=== PATIENT | male | born 1950 | race Caucasian/White ===

== ENCOUNTER 2019-08-18 08:00 | Outpatient (CLI) | payer MEDICARE, OTHER | END 2019-08-18 23:59 | disposition home or self-care (01) | LOC: LAB.R 08:00 | PROVIDERS: ATTEND Family Medicine | DX: R35.0 Frequency of micturition (principal) | CPT/HCPCS: 87086; 87181 ==

== ENCOUNTER 2020-07-19 13:34 | Outpatient (CLI) | payer MEDICARE, OTHER ==
[2020-07-19 14:22] VITALS: BP 124/71
--- NOTE | 2020-07-19 14:22 | SLEEP CARE CONSULTATION ---
Information from patient questionnaire entered by Merari Castellano. I have reviewed and concur with the information entered by Merari Castellano. This document represents the service I personally performed and the decisions made by me, Anna Betancourt ARNP. History of Present Illness Service Date and Time: 07/19/2020 1334 Reason for Visit: New patient, Previously diagnosed sleep apnea, Re-establish care Chief Complaint: reports: Snoring, Observed pauses in breathing Date of Onset: A long time Usual bedtime: 10:30 - 11 Time it takes to fall asleep: 5 mins Snores at night: Yes Observed to quit breathing while asleep: Yes Sleeps alone due to snoring: No Number of times waking at night: 1 or 2 time Reasons for waking at night: reports: Bathroom. denies: Choking, Snoring, Gasping for air Toss, Turn, or Twitch while sleeping: Yes Recalls having dreams: Yes Usually gets out of bed at: 7:00 Feels refreshed in the morning: Yes Morning headache: No Sleepy or fatigued during the day: No Ever fallen asleep while driving: No Takes day naps: No Prior sleep studies: Yes Year and Where: 2010 [facility] Type of Sleep Study: Polysomnography Additional HPI information: MIGUELITO REN was diagnosed to have mild, AHI 6.2, obstructive sleep apnea- hypopnea syndrome in 2010. He did not start any therapy at that time. He comes in today because his has been telling him that he is pausing breathing throughout the night. 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 Patient is and lives in [place]. Have you smoked in the past 12 months: No Alcohol use: Yes Alcohol amount and frequency: glass of wine with dinner Caffeine use: No Family History Family history of sleep disordered breathing: Yes (My sister) Family Hx Sleep Apnea: Sibling: Sleep apnea - Treated Allergies and Home Medications Drug allergies reviewed: Yes (NKDA) Home medication list reviewed: Yes Allergy and home medication list: Tylenol Lisinopril Flomax Amlodipine 2.5 mg Review of Systems Weight gain over past 5 years: + or - 5 lbs Cardiovascular: reports: high blood pressure Gastrointestinal: denies: heartburn Neurological: denies: headaches Ear/Nose/Throat: reports: tonsillectomy, wisdom teeth removed Immunologic: denies: allergies to food or environment Physical Exam Blood Pressure: 124/71 Cuff size: wrist Heart Rate: 70 O2 Saturation: 96 Height: 5 ft 11 in Weight: 206 lb Body Mass Index: 28.7 BMI Classification: Overweight Heart: regular rate and rhythm Lungs: clear bilaterally Impression and Plan 1. Suspected Obstructive Sleep Apnea-Hypopnea Syndrome, as previously diagnosed in 2010 and as suggested by a continued history of loud and irregular snoring and observed cessation of breath while asleep. Narrow oropharynx and obesity are common predisposing factors for obstructive sleep apnea-hypopnea syndrome. I recommend proceeding to polysomnography to confirm the diagnosis and to assess severity. If the patient has significant sleep disordered breathing, a manual CPAP titration study will also be performed to find the optimal treatment pressure. I informed the patient of what the sleep studies involve and after some discussion, obtained agreement to proceed. The pathophysiology of obstructive sleep apnea-hypopnea syndrome was discussed with the patient and health risks of cardiovascular and cerebrovascular disease if not treated. Risks of drowsy driving discussed in detail and patient advised to avoid long distance driving and to loin puller at the first sign of drowsiness. Patient agreed to plan. * Schedule polysomnography +- manual CPAP titration study and return in 1-2 weeks after the study to discuss result and initiate therapy. * Avoid long distance driving or driving when feeling sleepy. * Avoid alcohol, sedative and muscle relaxant around bedtime. * Attempt to lose weight. * Review instructions provided by trained office staff on how to prepare for the sleep study. * Return for follow-up after sleep study completed. Counseling Topics: Weight loss health impact Visit Type: In Office Time Spent with Patient (minutes): 23 Provider Statement: I spent 100% of the Face to Face Visit with the patient with greater than 50% spent counseling the patient and coordination of care.
== END 2020-07-19 13:35 | disposition home or self-care (01) ==
LOC: SC 13:34
PROVIDERS: ATTEND Nurse Practitioner Family
DX: G47.33 Obstructive sleep apnea (adult) (pediatric) (principal); E66.3 Overweight; Z68.28 Body mass index [BMI] 28.0-28.9, adult
CPT/HCPCS: 99203; G0463; 99212

== ENCOUNTER 2020-08-22 07:00 | Outpatient (CLI) | payer MEDICARE, OTHER ==
--- NOTE | 2020-08-22 16:17 | XRAY Report ---
PROCEDURE: Cervical Spine 2 View INDICATIONS: CERVICAL RADICULOPATHY TECHNIQUE: view(s) of the cervical spine were acquired. COMPARISON: None. FINDINGS: Bones: No fractures or dislocations to the C7-T1 level. The lateral masses of C1 appear intact on t he odontoid view. No suspicious bony lesions. There is trace anterolisthesis of C3 on C4, trace ret rolisthesis of C4 on C5, C5 on C6. Severe disc space narrowing is present from C4-5 through C7-T1. Mu ltilevel prominent uncovertebral arthropathy are present. The latter osteophytes are present. Soft tissues: No prevertebral soft tissue swelling. IMPRESSION: Multilevel degenerative changes most severe from C4-5 through C7-T1. Reviewed by: Anh Ayala MD on 08/22/2020 4:16 PM PDT Approved by: Anh Ayala MD on 08/22/2020 4:16 PM PDT Station ID: [id number]
== END 2020-08-22 23:59 | disposition home or self-care (01) ==
LOC: DI.WCP 07:00
PROVIDERS: ATTEND Physician Assistant Medical
DX: M47.22 Other spondylosis with radiculopathy, cervical region (principal); M48.02 Spinal stenosis, cervical region

== ENCOUNTER 2020-10-24 20:47 | Outpatient (CLI) | payer MEDICARE, OTHER | END 2020-10-24 20:48 | disposition home or self-care (01) | LOC: SC 20:47 | PROVIDERS: ATTEND Nurse Practitioner Family | DX: G47.33 Obstructive sleep apnea (adult) (pediatric) (principal); G47.61 Periodic limb movement disorder; E66.3 Overweight; Z68.28 Body mass index [BMI] 28.0-28.9, adult | CPT/HCPCS: 95810 ==

== ENCOUNTER 2020-11-01 16:52 | Outpatient (CLI) | payer MEDICARE, OTHER ==
--- NOTE | 2020-11-01 17:26 | SLEEP CARE CONSULTATION ---
Information from patient questionnaire entered by Merari Castellano. I have reviewed and concur with the information entered by Merari Castellano. This document represents the service I personally performed and the decisions made by , Anna Betancourt ARNP. History of Present Illness Service Date and Time: 11/01/2020 165 Initial [place] Sleepiness Scale score: 2 Current [place] Sleepiness Scale score: 3 Additional HPI information: MIGUELITO REN returns for follow up and results of the recently performed polysomnography. I explained the pathophysiology behind obstructive sleep apnea. We then spent quite a bit of time discussing different treatment options. For mild obstructive sleep apnea, surgery and oral appliance are alternatives to nasal CPAP therapy but in moderate or severe cases, nasal CPAP is the most effective and reliable treatment. Because apnea is primarily in supine position, then positional management therapy could be effective. Methods discussed such as positioning with pillows, using a T-shirt with tennis balls in the back, and shown commercial products that have a pillow format on back to prevent supine sleep. I reviewed the impact of weight changes on sleep apnea and strongly recommended losing weight. After some discussion, the patient opted to go with the nasal CPAP therapy. Nasal autoCPAP set at 4-15 cmH20 will be ordered with rationale explained. A manual titration study will be ordered if unable to find optimal pressure with office adjustments. I explained how CPAP machine works with sample devices [employer] Dream[employer] and [employer] [id number] and what to expect when using the machine. Using CPAP every night in order to get used to it was emphasized. Patient advised to put CPAP mask on before getting into bed so as not to fall asleep without CPAP. To assist acclimation to CPAP use, it could also be used for a short time during day while reading or watching TV. The patient was instructed to call the CPAP supplier to discuss any mechanical problem that may occur. If the mask given is uncomfortable or is difficult to keep on through the night even with adjustment, contact the CPAP supplier as many will replace with another mask style if notified before 30 days. If snoring or perceives is not getting enough air or too much air from the machine, notify this office. AAS patient education PAP tips reviewed and given to patient. Patient was cautioned about risks of drowsy driving until sleepiness symptoms resolve. Sleep Study - Results Type of Sleep Study: Polysomnography Prior sleep studies: Yes Year and Where: 2010 [facility] Polysomnography/Home Sleep Study results: IMPRESSION: The quality of the study is good. The patient had slightly reduced sleep efficiency due to frequent awakenings throughout the night.. The sleep architecture was abnormal for sleep fragmentation and reduced amount of time spent in REM and slow wave sleep (N3). Respiratory monitoring showed moderate obstructive sleep apnea-hypopnea (AHI = 23.0) associated with frequent arousals, oxyhemoglobin desaturation and moderate hypoxia (lydia oxygen saturation of 74%). Baseline oxygen saturation was normal. The respiratory events occurred almost exclusively during supine sleep (supine AHI = 32.9; non-supine = 1.53). Snore was light to moderate in intensity. There was severe periodic leg movement of sleep contributing to the sleep fragmentation. Cardiac rhythm was normal sinus rhythm without significant arrhythmia. No abnormal behavior (parasomnia) observed during the night. Allergies and Home Medications Home medication list reviewed: Yes (no changes) Review of Systems Review of systems same as previous: Yes (no changes) Physical Exam Heart Rate: 64 O2 Saturation: 95 Height: 5 ft 11 in Weight: 201 lb Body Mass Index: 28.0 BMI Classification: Overweight Impression and Plan 1. Obstructive Sleep Apnea-Hypopnea Syndrome, moderate, with lowest oxygen saturation of 74%. Obviously this is the cause of the patients symptoms of unrefreshed sleep, and excessive daytime sleepiness. Positive pressure therapy could benefit hypertension. As mentioned above, the patient will be started on nasal autoCPAP therapy with pressure set at 4-15 cmH2O. A manual titration study will be completed if unable to find optimal treatment pressure with office adjustments. Compliance guidelines also reviewed. A copy of compliance guidelines will be given for reference at check out. Because the apnea is more severe supine, I instructed to avoid sleeping supine using pillow positioning until able to start CPAP use. 2. Periodic limb movement, severe, that did fragment patients sleep. Periodic limb movement of sleep (PLMS) is characterized by episodes of repetitive limb movements that occur during sleep and usually involve the lower limbs. Patient was advised that no treatment is needed at this time. If symptoms increase, then further evaluation is indicated. * Nasal auto CPAP therapy, pressure at 4-15 cm H2O. * Attempt to lose weight. * Avoid alcohol consumption near bedtime. * Avoid supine sleep until using CPAP. * The patient is again cautioned about driving until sleepiness completely resolves. * Return one month after CPAP obtained. I will assess response to therapy and compliance at that time. Counseling Topics: Weight loss health impact Visit Type: In Office Time Spent with Patient (minutes): 25 Provider Statement: I spent 100% of the Face to Face Visit with the patient with greater than 50% spent counseling the patient and coordination of care.
== END 2020-11-01 16:53 | disposition home or self-care (01) ==
LOC: SC 16:52
PROVIDERS: ATTEND Nurse Practitioner Family
DX: G47.33 Obstructive sleep apnea (adult) (pediatric) (principal); E66.3 Overweight; Z68.28 Body mass index [BMI] 28.0-28.9, adult
CPT/HCPCS: 99213; G0463; 99212

== ENCOUNTER 2020-12-27 09:16 | Outpatient (CLI) | payer MEDICARE, OTHER ==
--- NOTE | 2020-12-27 09:44 | SLEEP CARE CONSULTATION ---
Information from patient questionnaire entered by Merari Castellano. I have reviewed and concur with the information entered by Merari Castellano. This document represents the service I personally performed and the decisions made by , Anna Betancourt ARNP. History of Present Illness Service Date and Time: 12/27/2020 0916 Previous diagnosis: Moderate, Obstructive Sleep Apnea-Hypopnea Syndrome AHI: 23.0 Reason for follow up: first compliance (11/15 set-up) Equipment type: CPAP Equipment obtained from: Other ([facility]; got initial supplies) Mask style: Full face Backup mask available: No (will keep old mask when replaced) Last cushion change: 5-6 weeks Prior sleep studies: Yes Year and Where: 2010 [facility] Type of Sleep Study: Polysomnography HPI additional information: MIGUELITO REN was diagnosed to have mild, AHI 6.2, obstructive sleep apnea- hypopnea syndrome and returned today for CPAP therapy first compliance follow- up. CPAP Compliance Data - Data Reviewed with Patient Average duration of nightly device use: 7 h 18 min Compliance rate %: 93 Current pressure setting (cmH2O): 4-15 (median 12.7, 95th% 14.6, max 14.8) Average residual AHI: 9.9 Central apnea: 0.8 Obstructive apnea: 3.5 Subjective Patient concerns: reports: dry mouth, nose, throat (dry mouth, not bad), other (Incidents high). denies: aerophagia, mask discomfort, air blowing in eyes, mask leak noise, condensation in mask/hose, nasal congestion, epistaxis Observed to snore while using device: No Current pressure setting perceived as: too low On therapy, patient: reports: sleeping better (and longer without waking up). denies: drowsiness while driving Initial [place] Sleepiness Scale score: 6 (in 2014) Current [place] Sleepiness Scale score: 7 Allergies and Home Medications Home medication list reviewed: Yes (no changes) Review of Systems Review of systems same as previous: Yes (no changes) Physical Exam Heart Rate: 68 O2 Saturation: 97 Height: 5 ft 11 in Weight: 203 lb Body Mass Index: 28.3 BMI Classification: Overweight Impression and Plan 1. Obstructive Sleep Apnea-Hypopnea Syndrome, mild, with good treatment compliance and fair apnea control with elevated residual AHI. On CPAP therapy, the patient has better sleep quality and is more rested overall. Patient has been watching his device and notes that he has been having elevated events. He has also felt like he needs more air at times (feeling heaviness or hard to breathe with mask on). The patients pressure will be changed to autoCPAP 13-20 cmH20 for elevation of residual AHI and air hunger. Patient advised to contact me if pressure change is uncomfortable so that it can be adjusted. Goals for apnea control discussed. He has been getting some mild mouth dryness. Oral dryness can be reduced by adjusting humidity setting higher or heated hose lower or by adjusting both settings. Verbal instructions given on how to change humidity and heated hose settings with rationale explaining why to change. Patient's apnea severity and rationale for treatment to reduce apnea, improve sleep quality and reduce cardiovascular and cerebrovascular events was reviewed. I also reviewed the benefit of consistent device use of CPAP for hypertension. Patient encouraged to try to lose weight to improve his overall health. * Change auto CPAP pressure to 13-20 cmH2O * Notify me if snoring with mask or feeling that the pressure is too much or too little * Attempt to lose weight * Call this office if any problems using CPAP * Return for follow up in 1-2 months, or sooner if concerns arise Counseling Topics: Spare mask, Weight loss health impact Visit Type: In Office Time Spent with Patient (minutes): 17 Provider Statement: I spent 100% of the Face to Face Visit with the patient with greater than 50% spent counseling the patient and coordination of care.
== END 2020-12-27 09:17 | disposition home or self-care (01) ==
LOC: SC 09:16
PROVIDERS: ATTEND Nurse Practitioner Family
DX: G47.33 Obstructive sleep apnea (adult) (pediatric) (principal)
CPT/HCPCS: 99212; G0463

== ENCOUNTER 2021-02-12 14:39 | Outpatient (CLI) | payer MEDICARE, OTHER ==
--- NOTE | 2021-02-12 15:07 | SLEEP CARE CONSULTATION ---
Information from patient questionnaire entered by Cleo Cortes. I have reviewed and concur with the information entered by Cleo Cortes. This document represents the service I personally performed and the decisions made by , Anna Betancourt ARNP. History of Present Illness Service Date and Time: 02/12/2021 1439 Previous diagnosis: Moderate, Obstructive Sleep Apnea-Hypopnea Syndrome AHI: 23.0 (in 2020)(6.2 in 2010) Reason for follow up: other (6 week with pressure change) Equipment type: CPAP Equipment obtained from: Other ([facility]; has not been contacted or gotten more supplies) Mask style: Full face Backup mask available: No (will keep old mask when replaced) Last cushion change: 2 weeks ago Prior sleep studies: Yes Year and Where: 2020 and 2010 - [facility] Type of Sleep Study: Polysomnography HPI additional information: MIGUELITO REN was diagnosed to have mild, AHI 6.2, obstructive sleep apnea- hypopnea syndrome and returned today for CPAP therapy 6 week pressure change follow-up. CPAP Compliance Data - Data Reviewed with Patient Average duration of nightly device use: 6 hr 16 min Compliance rate %: 100 Current pressure setting (cmH2O): 8-16 Humidity settin Average residual AHI: 7.4 Subjective Patient concerns: reports: other (uncomfortable, air seems stale). denies: aerophagia, mask discomfort, air blowing in eyes, mask leak noise, condensation in mask/hose, nasal congestion, dry mouth, nose, throat, epistaxis Observed to snore while using device: No Current pressure setting perceived as: comfortable On therapy, patient: reports: other (he does not feel different with CPAP as without). denies: sleeping better, more rested overall, drowsiness while driving Initial [place] Sleepiness Scale score: 6 (in 2010) Current [place] Sleepiness Scale score: 4 Allergies and Home Medications Home medication list reviewed: Yes (no changes) Review of Systems Review of systems same as previous: Yes (no changes) Physical Exam Heart Rate: 67 O2 Saturation: 96 Height: 5 ft 11 in Weight: 204 lb Body Mass Index: 28.4 BMI Classification: Overweight Impression and Plan 1. Obstructive Sleep Apnea-Hypopnea Syndrome, mild, with excellent treatment co mpliance and fair apnea control with mild elevation of residual AHI. Patient has not felt like he is getting better sleep or feeling more rested with using the CPAP. He states his is happier because his snoring has reduced. He does feel like it is making some positive changes but overall is not real comfortable with CPAP use at this time. The patients pressure will be changed to autoCPAP 1 0-18 cmH20 for elevation of residual AHI. Patient advised to contact me if pressure change is uncomfortable so that it can be adjusted. Goals for apnea control discussed. Patient has not been able to get more supplies yet. I will have the straightener hand give him the number for his [employer] company so that he may contact them to order more supplies. Patient's apnea severity and rationale for treatment to reduce apnea, improve sleep quality and reduce cardiovascular and cerebrovascular events was reviewed. I also reviewed the benefit of consistent device use of CPAP for hypertension. Patient was encouraged to lose weight for their overall health and to reduce apneas. * Change auto CPAP pressure to 10-18 cmH2O * Notify me if snoring with mask or feeling that the pressure is too much or too little * Attempt to lose weight * Call this office if any problems using CPAP * Return for follow up in 3 months, or sooner if concerns arise Counseling Topics: Spare mask, Weight loss health impact Visit Type: In Office Time Spent with Patient (minutes): 21 Provider Statement: I spent 100% of the Face to Face Visit with the patient with greater than 50% spent counseling the patient and coordination of care.
== END 2021-02-12 14:40 | disposition home or self-care (01) ==
LOC: SC 14:39
PROVIDERS: ATTEND Nurse Practitioner Family
DX: G47.33 Obstructive sleep apnea (adult) (pediatric) (principal); E66.3 Overweight; Z68.28 Body mass index [BMI] 28.0-28.9, adult
CPT/HCPCS: 99213; G0463; 99212

== ENCOUNTER 2021-05-14 14:33 | Outpatient (CLI) | payer MEDICARE, OTHER ==
[2021-05-14 15:01] VITALS: BP 124/82
--- NOTE | 2021-05-14 15:01 | SLEEP CARE CONSULTATION ---
Information from patient questionnaire entered by Shaista Boo MA. I have reviewed and concur with the information entered by Shaista Boo MA. This document represents the service I personally performed and the decisions made by , Anna Betancourt ARNP. History of Present Illness Service Date and Time: 05/14/2021 1433 Previous diagnosis: Moderate, Obstructive Sleep Apnea-Hypopnea Syndrome AHI: 23.0 Reason for follow up: three month (PRESSURE CHANGE) Equipment type: CPAP Equipment obtained from: Other ([facility]; getting supplies) Mask style: Full face Backup mask available: Yes (old mask) Last cushion change: 2 months [facility]: Yes [facility] Type of Sleep Study: Polysomnography HPI additional information: MIGUELITO REN was diagnosed to have moderate, AHI 23.0, obstructive sleep apnea-hypopnea syndrome and returned today for CPAP therapy 3 months with pressure change follow-up. Sleep Study - Results Type of Sleep Study: Polysomnography Prior sleep studies: Yes [facility] and [facility] CP[facility] Compliance Data - Data Reviewed with Patient Average duration of nightly device use: 6 hours 47 minutes Compliance rate %: 93 Current pressure setting (cmH2O): 10-18 Average residual AHI: 7.0 Central apnea: 0.7 Obstructive apnea: 2.4 Subjective Patient concerns: reports: dry mouth, nose, throat (he adjusted his heated hose to 85, he may not have adjusted the humidity from last time). denies: aerophagia, mask discomfort, air blowing in eyes, mask leak noise, condensation in mask/hose, nasal congestion, epistaxis, other Observed to snore while using device: No Current pressure setting perceived as: comfortable On therapy, patient: reports: sleeping better, more rested overall, other (He is more comfortable with CPAP mask, sleeping longer ). denies: drowsiness while driving Initial [place] Sleepiness Scale score: 6 (in 2013) Current [place] Sleepiness Scale score: 4 Allergies and Home Medications Home medication list reviewed: Yes (no changes) Review of Systems Review of systems same as previous: Yes (no changes) Physical Exam Vital signs obtained and entered by: BAN MELGOZA Blood Pressure: 124/82 (left) Cuff size: wrist Heart Rate: 69 O2 Saturation: 98 (with mask) Height: 5 ft 11 in Weight: 201 lb (info per PT without clothes) Body Mass Index: 28.0 BMI Classification: Overweight Impression and Plan 1. Obstructive Sleep Apnea-Hypopnea Syndrome, moderate, with good treatment compliance and fair apnea control with mild elevated residual AHI. On CPAP thera py, the patient has better sleep quality and is more rested overall. He states he is getting used to the CPAP and it is not bothering him. The patients pressure will be changed to autoCPAP 13-17 cmH20 for elevation of residual AHI. Patient advised to contact me if pressure change is uncomfortable so that it can be adjusted. Goals for apnea control discussed. He voiced understanding. Patient has had some daily mild oral dryness. We discussed this at his last visit and it sounds like he may have just adjusted his tubing temperature instead of his humidity. I reviewed this again and he will try to increase his humidity to reduce the oral dryness. Patient's apnea severity and rationale for treatment to reduce apnea, improve sleep quality and reduce cardiovascular and cerebrovascular events was reviewed. I also reviewed the benefit of consistent device use of CPAP for hypertension. Patient was encouraged to lose weight for their overall health and to reduce apneas. * Change auto CPAP pressure to 13-17 cmH2O * Notify me if snoring with mask or feeling that the pressure is too much or too little * Attempt to lose weight * Call this office if any problems using CPAP * Return for follow up in 6 months, or sooner if concerns arise Counseling Topics: Spare mask, Weight loss health impact Visit Type: In Office Time Spent with Patient (minutes): 22 Provider Statement: I spent 100% of the Face to Face Visit with the patient with greater than 50% spent counseling the patient and coordination of care.
== END 2021-05-14 14:34 | disposition home or self-care (01) ==
LOC: SC 14:33
PROVIDERS: ATTEND Nurse Practitioner Family
DX: G47.33 Obstructive sleep apnea (adult) (pediatric) (principal); E66.3 Overweight; Z68.28 Body mass index [BMI] 28.0-28.9, adult
CPT/HCPCS: 99213; G0463; 99212

== ENCOUNTER 2021-11-14 06:19 | Day surgery (SDC) | payer MEDICARE, OTHER ==
[2021-11-14] MEDS ORDERED: LACTATED RINGERS 1,000 ML IV ONE ×2 (06:27→08:19)
--- NOTE | 2021-11-14 07:05 | ANESTHESIA ---
Pre-Anesthesia VS, & Labs - Diagnosis positive colguard - Procedure colonoscopy Vital Signs: Temp Pulse Resp BP Pulse Ox 36.1 C L 63 14 130/85 H 96 11/14/21 06:30 11/14/21 06:30 11/14/21 06:30 11/14/21 06:30 11/14/21 06:30 Height: 5 ft 11 in Weight (kg): 89.8 kg Body Mass Index: 27.6 BMI Classification: Overweight - NPO >8 hours Home Medications and Allergies Home Medications: Ambulatory Orders Amlodipine Besylate [Norvasc] 1 tab PO DAILY 11/14/21 Lisinopril/Hydrochlorothiazide [Zestoretic 20-25 mg Tablet] 1 tab PO DAILY 11/14/21 Amlodipine Besylate [Norvasc] 1 tab PO DAILY 11/14/21 Lisinopril/Hydrochlorothiazide [Zestoretic 20-25 mg Tablet] 1 tab PO DAILY 11/14/21 Allergies/Adverse Reactions: Allergies Allergy/AdvReac Type Severity Reaction Status Date / Time No Known Drug Allergies Allergy Verified 11/14/21 06:48 Anes History & Medical History - Anesthetic History Anesthesia Complications: reports: No previous complications Family history of Anesthesia Complications: Denies Family history of Malignant Hyperthermia: Denies - Medical History Cardiovascular: reports: Hypertension, High cholesterol Pulmonary: reports: Sleep apnea, CPAP use Gastrointestinal: reports: None Urinary: reports: Benign prostate hypertrophy Musculoskeletal: reports: Osteoarthritis Endocrine/Autoimmune: reports: None Skin: reports: None - Surgical History Eyes Ears Nose Throat (EENT): reports: Tonsil/Adenoidectomy Orthopedic: reports: Hip replacement, Knee replacement Exam General: Alert, Oriented x3, Cooperative Dental: WNL Mouth Openin Fingerbreadth Neck Mobility: Normal Mallampati classification: II Thyromental Distance: 4-6 cm Respiratory: Lungs clear, Normal breath sounds, No respiratory distress Cardiovascular: Regular rate Neurological: Normal speech Mental/Cognitive Status: Alert/Oriented X3, Normal for patient Cognitive Status: Within normal limits Plan Anesthesia Type: Total IV Consent for Procedure(s) Verified and Reviewed: Yes Code Status: Attempt Resuscitation ASA classification: 2-Mild systemic disease Is this case an emergency?: No
[2021-11-14] MEDS ORDERED: PROPOFOL 500 MG/50 ML 500 MG/50 ML VIAL ONE (07:11)
[2021-11-14] MEDS ORDERED: MIDAZOLAM 2 MG/2 ML VIAL ONE (07:17)
--- NOTE | 2021-11-14 07:31 | HISTORY & PHYSICAL EXAMINATION ---
Chief Complaint - Chief Complaint Chief Complaint: here for colon cancer screening History of Present Illness - History Obtained From Records Reviewed: yes History obtained from: pt Exam Limitations: none - History of Present Illness HPI Comment/Other: normal colonoscopy in 2010. recent cologuard positive History - Past Medical History Cardiovascular: reports: Hypertension, High cholesterol Respiratory: reports: Sleep apnea, CPAP use Endocrine/Autoimmune: reports: None GI: reports: None : reports: Benign prostate hypertrophy HEENT: reports: None Psych: reports: None Musculoskeletal: reports: Osteoarthritis Derm: reports: None MRSA Hx?: No - Past Surgical History Ortho: reports: Hip replacement, Knee replacement HEENT: reports: Tonsil/Adenoidectomy Meds/Allgy - Home Medications Home Medications: Ambulatory Orders Medication Instructions Recorded Confirmed Amlodipine Besylate [Norvasc] 1 tab PO DAILY 11/14/21 11/14/21 Lisinopril/Hydrochlorothiazide 1 tab PO DAILY 11/14/21 11/14/21 [Zestoretic 20-25 mg Tablet] - Allergies Allergies/Adverse Reactions: Allergies Allergy/AdvReac Type Severity Reaction Status Date / Time No Known Drug Allergies Allergy Verified 11/14/21 06:48 Review of Systems - Other Findings Other Findings: 10 pt ros as above otherwise unremarkable Exam - Vital Signs Reviewed Vital Signs: Yes Vital Signs: Vital Signs x48h Temp Pulse Resp BP Pulse Ox 11/14/21 06:30 36.1 C L 63 14 130/85 H 96 - Physical Exam General Appearance: positive: No acute distress, Alert Eyes Bilateral: positive: PERRL, EOMI ENT: positive: No signs of dehydration Neck: positive: No JVD, Trachea midline Respiratory: positive: No respiratory distress, Breath sounds nml Cardiovascular: positive: Regular rate & rhythm Abdomen: positive: Non-tender, No distention Neurologic/Psychiatric: positive: Oriented x3 Conclusion/Plan - Problem List (1) Abnormal stool test Conclusion/Plan: positive cologuard. plan colonoscopy. parq held and consent obtained
[2021-11-14 08:45] VITALS: BP 115/70
--- NOTE | 2021-11-14 08:51 | ANESTHESIA POST OP EVALUATION ---
Anesthesia Post Eval - Post Anesthesia Eval Vitals: Last Vital Signs Temp 36.3 C L 11/14/21 08:44 Pulse 54 L 11/14/21 08:44 Resp 14 11/14/21 08:44 BP 115/70 11/14/21 08:44 Pulse Ox 96 11/14/21 08:44 CV Function Including HR & BP: Stable Pain Control: Satisfactory Nausea & Vomiting: Negative Mental Status: Baseline Respiratory Status: Airway Patent Hydration Status: Satisfactory Anesthesia Complications: None
== END 2021-11-14 06:20 | disposition home or self-care (01) ==
LOC: SDS 06:19
PROVIDERS: ATTEND Surgery
PROC: 0DBM8ZZ Excision of Descending Colon, Via Natural or Artificial Opening Endoscopic (ICD-10-PCS; 2021-11-14)
PROC: 0DBK8ZZ Excision of Ascending Colon, Via Natural or Artificial Opening Endoscopic (ICD-10-PCS; 2021-11-14)
PROC: 0DBH8ZZ Excision of Cecum, Via Natural or Artificial Opening Endoscopic (ICD-10-PCS; principal; 2021-11-14 07:30)
DX: R19.5 Other fecal abnormalities (principal); D12.0 Benign neoplasm of cecum; D12.2 Benign neoplasm of ascending colon; K63.5 Polyp of colon; K57.30 Diverticulosis of large intestine without perforation or abscess without bleeding; G47.33 Obstructive sleep apnea (adult) (pediatric)
CPT/HCPCS: 45380; 45385; J7120

== ENCOUNTER 2023-01-08 16:17 | Outpatient (CLI) | payer MEDICARE, OTHER ==
--- NOTE | 2023-01-08 16:37 | Sleep Patient Instructions ---
Sleep Center Visit Summary - Patient Visit Information Reason for Visit: Annual visit for PAP therapy - Patient Instructions Additional Instructions: You will continue with CPAP therapy with pressure set at 11-16 cmH2O. A supply prescription will be updated with your DME. A mask fitting for nasal pillows mask was ordered as well, they should be calling you to set this up. We encourage you to continue to try to lose weight. Please follow up with the sleep care office in 1 year. - Clinic Information Contact: [facility] [address] [place] [address] [email or web address] T: [phone]
--- NOTE | 2023-01-08 16:46 | SLEEP CARE CONSULTATION ---
Information from patient questionnaire entered by Rosario Kaiser. I have reviewed and concur with the information entered by Rosario Kaiser. This document represents the service I personally performed and the decisions made by me, Anna Betancourt ARNP. History of Present Illness Service Date and Time: 01/08/2023 1540 Previous diagnosis: Moderate, Obstructive Sleep Apnea-Hypopnea Syndrome AHI: 23.0 Reason for follow up: annual (LAST SEEN) Equipment type: CPAP (RESMED 10, s/u 10/2020) Equipment obtained from: Other ([facility]; getting supplies) Mask style: Full face Mask brand: [employer] ([place]) Backup mask available: Yes (other mask) [facility]: [facility] Type of Sleep Study: Polysomnography HPI additional information: MIGUELITO REN was diagnosed to have moderate, AHI 23, obstructive sleep apnea- hypopnea syndrome and returned today for CPAP therapy annual follow-up. Sleep Study - Results Type of Sleep Study: Polysomnography Prior sleep studies: Yes [facility] and [facility] CP[facility] Compliance Data - Data Reviewed with Patient Average duration of nightly device use: 6 hours 20 minutes Compliance rate %: 81 (07/10/22-01/05/23; 153/180 days used) Current pressure setting (cmH2O): 11-16 Average residual AHI: 6.1 Central apnea: 0.7 Obstructive apnea: 0.5 Hypopnea: 2.6 Average large leak: 19.6 L/min Subjective Patient concerns: reports: mask discomfort, air blowing in eyes, mask leak noise, dry mouth, nose, throat Observed to snore while using device: No Current pressure setting perceived as: comfortable On therapy, patient: reports: other (not sleeping well with CPAP). denies: drowsiness while driving Initial [place] Sleepiness Scale score: 6 (in 2013) Current [place] Sleepiness Scale score: 4 (01/08/23) Allergies and Home Medications Known drug allergies: No Drug allergies reviewed: Yes Home medication list reviewed: Yes (Meloxicam for his arthritis) Allergy and home medication list: Allergies No Known Drug Allergies Allergy (Verified 01/07/23 10:45) Review of Systems Review of systems same as previous: Yes (no changes) Physical Exam Vital signs obtained and entered by: ROSARIO Valadez MA Blood Pressure: 122/68 (LEFT ARM) Cuff size: regular Heart Rate: 69 O2 Saturation: 94 Height: 5 ft 11 in Weight: 203 lb 9.6 oz Body Mass Index: 28.3 BMI Classification: Overweight Impression and Plan 1. Obstructive Sleep Apnea-Hypopnea Syndrome, moderate, with good treatment compliance and fair apnea control with minimal elevation of residual AHI. He has large air leaks which may be showing false elevation of his AHI. I will not make any adjustments of the pressure today. On CPAP therapy, the patient feels like he is fighting the mask with mask leaking noises, air leaking into his eyes and the mask is just not comfortable. He was fitted to a different full face mask that is better in some ways but still not really working for him. He would like to try a nasal pillows mask and I will add a mask fitting for nasal pillow mask to his supply update. He is also complaining of a dry mouth and throat in the mornings. He has to moisten and clear throat of mucus daily. Oral dryness can be reduced by adjusting humidity setting higher or heated hose lower or by adjusting both settings. Verbal instructions given on how to change humidity and heated hose settings with rationale explaining why to change. Oral dryness can also be reduced by reducing mask leaks. In addition, there are oral dryness products that can be used to reduce dryness such as Biotene products, Dry mouth rinse and Xylomelts. He voiced understanding. Patient's apnea severity and rationale for treatment to reduce apnea, improve sleep quality and reduce cardiovascular and cerebrovascular events was reviewed. I also reviewed the benefit of consistent device use of CPAP for hypertension. 2. Overweight, unspecified. Currently patients BMI is 28.3. Obesity increases the risk of apnea, CPAP pressure requirements and overall health risks especia lly cardiovascular and diabetes. Thus patient is advised to continue to try to lose weight. * Continue auto CPAP pressure at 11-16 cmH2O * Mask fitting for nasal pillow mask * Update supplies * Notify me if snoring with mask or feeling that the pressure is too much or too little * Attempt to lose weight * Call this office if any problems using CPAP * Return for follow up in 1 year, or sooner if concerns arise Counseling Topics: Spare mask, Weight loss health impact Prescriptions: Device supplies Visit Type: In Office Time Spent with Patient (minutes): 24 Provider Statement: I spent 100% of the Face to Face Visit with the patient with greater than 50% spent counseling the patient and coordination of care.
[2023-01-08 16:49] VITALS: BP 122/68; O2SAT 94
== END 2023-01-08 16:18 | disposition home or self-care (01) ==
LOC: SC 16:17
PROVIDERS: ATTEND Nurse Practitioner Family
DX: G47.33 Obstructive sleep apnea (adult) (pediatric) (principal); E66.3 Overweight; Z68.28 Body mass index [BMI] 28.0-28.9, adult
CPT/HCPCS: 99213; G0463; 99212

== ENCOUNTER 2023-08-20 15:41 | Outpatient (CLI) | payer MEDICARE, OTHER ==
--- NOTE | 2023-08-22 07:03 | CT Report ---
PROCEDURE: CT heart coronary calcium scoring without contrast TECHNIQUE: MDCT non-contrast cardiac gated images were obtained from the terry through the inferior margin of the heart. Calcium score was obtained by post-processing with external software. Automated exposure control was used to reduce patient radiation dose. INDICATION: CAD screening, low or intermediate risk COMPARISON: None FINDINGS: Image quality: Diagnostic Agatston method: Total calcium score: 180.9 L main: 11.2 LAD: 109.9 LCX: 59.8 RCA: 0 Heart findings: Mitral annular calcifications: Mild annular calcifications Aortic valve: Mild calcifications involving the annulus and leaflets. Chambers: No significant enlargement on this non-dynamic study. Pericardium: No effusion. Other findings (note the chest is incompletely imaged on this limited non-contrast study): Lungs and pleura: No pleural effusion. No actionable lung nodules. Mediastinum: No pathologic lymphadenopathy. Upper abdomen: Partially seen, unremarkable. Bones: No acute or suspicious abnormality. IMPRESSION: Coronary calcium scores as above. Incidentals: Mild calcifications of the aortic valve annulus and leaflets. Coronary artery calcium scores have been identified as an independent risk factor for future acute co ronary syndromes and correlate with the quantity of coronary atherosclerotic plaque. However, they do not correlate directly with the degree of stenosis. A low score does not exclude a significant coron asaf artery stenosis. Risk of future coronary events should be assessed with individual patient risk factors and medical hi story. Consider correlation with risk percentiles using the GUDINO (Multi-Ethnic Study of Atheroscleros is) calculator. CAC-DRS Categories: A0: 0, very low risk, consider repeat coronary calcium study every 3-7 years for surveillance. A1: 1-99, mildly increased risk, consider moderate-intensity statin A2: 100-299: moderately increased risk, consider moderate to high-intensity statin + ASA 81mg A3: >300: moderately to severely increased risk, consider high-intensity statin + ASA 81mg Reviewed by: Lorne Rios MD on 08/22/2023 7:01 AM PDT Approved by: Lorne Rios MD on 08/22/2023 7:01 AM PDT Station ID: [id number]
== END 2023-08-20 15:42 | disposition home or self-care (01) ==
LOC: DI 15:41
PROVIDERS: ATTEND Physician Assistant Medical
DX: E78.5 Hyperlipidemia, unspecified (principal)